=== PATIENT | male | born 1970 | race African-American/Black ===

== ENCOUNTER → 2020-07-14 | Outpatient (CLI) | payer BC | LOC: HYPER 08:17 | PROVIDERS: ATTEND Specialist | DX: S91.002A Unspecified open wound, left ankle, initial encounter (principal); S91.312A Laceration without foreign body, left foot, initial encounter; S90.922A Unspecified superficial injury of left foot, initial encounter; L97.522 Non-pressure chronic ulcer of other part of left foot with fat layer exposed; E66.9 Obesity, unspecified; I48.91 Unspecified atrial fibrillation; I10 Essential (primary) hypertension; Z68.31 Body mass index [BMI] 31.0-31.9, adult; Z86.718 Personal history of other venous thrombosis and embolism; Z79.01 Long term (current) use of anticoagulants; X58.XXXA Exposure to other specified factors, initial encounter; Y93.89 Activity, other specified; Y92.89 Other specified places as the place of occurrence of the external cause; Y99.8 Other external cause status ==

== ENCOUNTER → 2020-07-21 | Outpatient (CLI) | payer BC | LOC: HYPER 08:06 | PROVIDERS: ATTEND Specialist | DX: S91.002D Unspecified open wound, left ankle, subsequent encounter (principal); S91.312D Laceration without foreign body, left foot, subsequent encounter; L97.522 Non-pressure chronic ulcer of other part of left foot with fat layer exposed; I48.91 Unspecified atrial fibrillation; I10 Essential (primary) hypertension; E66.9 Obesity, unspecified; Z68.31 Body mass index [BMI] 31.0-31.9, adult; Z86.718 Personal history of other venous thrombosis and embolism; Z79.899 Other long term (current) drug therapy; Z79.01 Long term (current) use of anticoagulants; X58.XXXD Exposure to other specified factors, subsequent encounter ==

== ENCOUNTER → 2020-08-03 | Outpatient (CLI) | payer BC | LOC: HYPER 07:38 | PROVIDERS: ATTEND Emergency Medicine Emergency Medical Services | DX: S91.002D Unspecified open wound, left ankle, subsequent encounter (principal); S91.312D Laceration without foreign body, left foot, subsequent encounter; L97.522 Non-pressure chronic ulcer of other part of left foot with fat layer exposed; I48.91 Unspecified atrial fibrillation; I10 Essential (primary) hypertension; E66.9 Obesity, unspecified; Z68.31 Body mass index [BMI] 31.0-31.9, adult; Z86.718 Personal history of other venous thrombosis and embolism; Z79.01 Long term (current) use of anticoagulants; X58.XXXD Exposure to other specified factors, subsequent encounter ==

== ENCOUNTER → 2020-08-17 | Outpatient (CLI) | payer BC | LOC: HYPER 07:50 | PROVIDERS: ATTEND Emergency Medicine Emergency Medical Services | DX: S91.002D Unspecified open wound, left ankle, subsequent encounter (principal); S91.312D Laceration without foreign body, left foot, subsequent encounter; S90.922D Unspecified superficial injury of left foot, subsequent encounter; L97.522 Non-pressure chronic ulcer of other part of left foot with fat layer exposed; I48.91 Unspecified atrial fibrillation; I10 Essential (primary) hypertension; E66.9 Obesity, unspecified; Z68.31 Body mass index [BMI] 31.0-31.9, adult; Z86.718 Personal history of other venous thrombosis and embolism; Z79.01 Long term (current) use of anticoagulants; X58.XXXD Exposure to other specified factors, subsequent encounter ==

== ENCOUNTER → 2020-08-31 | Outpatient (CLI) | payer BC | LOC: HYPER 07:42 | PROVIDERS: ATTEND Emergency Medicine Emergency Medical Services | DX: S91.002D Unspecified open wound, left ankle, subsequent encounter (principal); S91.312D Laceration without foreign body, left foot, subsequent encounter; S90.922D Unspecified superficial injury of left foot, subsequent encounter; L97.522 Non-pressure chronic ulcer of other part of left foot with fat layer exposed; I48.91 Unspecified atrial fibrillation; I10 Essential (primary) hypertension; E66.9 Obesity, unspecified; Z68.31 Body mass index [BMI] 31.0-31.9, adult; Z86.718 Personal history of other venous thrombosis and embolism; Z79.01 Long term (current) use of anticoagulants; X58.XXXD Exposure to other specified factors, subsequent encounter ==